=== PATIENT | female | born 1995 | race Caucasian/White ===

== ENCOUNTER 2019-04-14 18:05 | Emergency (ER) | payer SELFPAY ==
[2019-04-14 18:14] VITALS: RESP 18; TEMP 97.6; O2SAT 99
[2019-04-14] MEDS ORDERED: CYCLOBENZAPRINE 10 MG TAB PO ONE (18:39)
[2019-04-14] MEDS ORDERED: KETOROLAC TROMETHAMINE 30 MG/ML SOL IM ONE (18:39)
[2019-04-14] MEDS ORDERED: CYCLOBENZAPRINE 10 MG TAB ONE (18:41)
[2019-04-14] MEDS ORDERED: KETOROLAC TROMETHAMINE 30 MG/ML SOL ONE (18:41)
[2019-04-14 19:06] VITALS: BP 106/71; PULSE 53
== END 2019-04-14 19:06 | disposition home or self-care (01) | DRG 552 ==
LOC: ED 18:05
DX: M62.830 Muscle spasm of back (principal); X50.0XXA Overexertion from strenuous movement or load, initial encounter
CPT/HCPCS: 96372; 99282; 99283; J1885; A9270-GY